=== PATIENT | female | born 1980 | race Caucasian/White ===

== ENCOUNTER 2017-05-05 11:50 | Outpatient (CLI) | payer OTHER | END 2017-05-05 11:51 | disposition short-term general hospital (02) | LOC: EMS 11:50 | PROVIDERS: ATTEND Surgery | DX: R10.12 Left upper quadrant pain (principal) | CPT/HCPCS: A0425; A0427 ==

== ENCOUNTER 2019-08-10 17:35 | Emergency (ER) | payer BC, OTHER ==
[2019-08-10 17:46] VITALS: BP 123/70
--- NOTE | 2019-08-10 17:56 | ED Physician Documentation ---
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 She was at her necktie maker appointment today when a heart rate was unable to be found. Came here for evaluation. No vaginal bleeding or cramping. No leakage of fluid. Nothing makes it better or worse. Patient is otherwise healthy. Patient is blood type A+ Review of Systems Constitutional: denies: Fever, Chills GI: denies: Vomiting, Diarrhea : denies: Dysuria, Frequency, Hesitancy Skin: denies: Rash Musculoskeletal: denies: Neck pain, Back pain Neurologic: denies: Headache PD PAST MEDICAL HISTORY - Past Medical History Past Medical History: No - Past Surgical History Past Surgical History: No - Allergies Allergies/Adverse Reactions: Allergies Allergy/AdvReac Type Severity Reaction Status Date / Time No Known Drug Allergies Allergy Verified 08/10/19 17:42 - Living Situation Living Situation: reports: With family Living Arrangement: reports: At home - Social History Does the pt smoke?: No Does the pt drink ETOH?: No Does the pt have substance abuse?: No - Family History Family history: reports: Non contributory PD ED PE NORMAL - Vitals Vital signs reviewed: Yes - General General: Alert and oriented X 3, No acute distress - HEENT HEENT: Moist mucous membranes - Neck Neck: Supple, no meningeal sign - Cardiac Cardiac: RRR - Respiratory Respiratory: No respiratory distress, Clear bilaterally - Abdomen Abdomen: Soft, Non tender, Non distended - Derm Derm: Warm and dry - Neuro Neuro: Alert and oriented X 3 - Psych Psych: Normal mood, Normal affect Results - Vitals Vitals: Vital Signs - 24 hr 08/10/19 17:38 Temperature 37.0 C Heart Rate 58 L Respiratory 16 Rate Blood Pressure 123/70 O2 Saturation 100 Oxygen O2 Source Room air PD MEDICAL DECISION MAKING - ED course Complexity details: reviewed results, re-evaluated patient, considered differential, d/w patient, d/w library sales consultant ED course: Bedside ultrasound reveals a intrauterine with no movement and no heartbeat visible. A formal ultrasound was ordered along with blood work. Discussed the case with Dr. Ny, OB who recommends ultrasound. Patient signed out to the oncoming emergency department physician who will follow-up with OB when the ultrasound is returned. Departure - Departure Clinical Impression: Intrauterine before 20 weeks of gestation Condition: Stable
[2019-08-10 18:18] LABS: BILIRUBIN,URINE NEGATIVE (NEGATIVE); GLUCOSE, URINE (UA) NEGATIVE (NEGATIVE); KETONES,URINE (UA) NEGATIVE (NEGATIVE); LEUKOCYTE ESTERASE, URINE NEGATIVE (NEGATIVE); NITRITE,URINE NEGATIVE (NEGATIVE); OCCULT BLOOD,URINE NEGATIVE (NEGATIVE); PROTEIN,URINE NEGATIVE (NEGATIVE); UROBILINOGEN,URINE 0.2 (NORMAL) E.U./dL (NORMAL)
[2019-08-10 18:19] LABS: CLARITY,URINE CLEAR (CLEAR)
[2019-08-10 18:34] LABS: BASOPHILS % (AUTO) 0.4 %; EOSINOPHILS # (AUTO) 0.1 10^3/uL (0.0-0.7); EOSINOPHILS % (AUTO) 1.4 %; HGB - HEMOGLOBIN 12.5 g/dL (12.0-16.0); LYMPHOCYTES # (AUTO) 2.2 10^3/uL (1.5-3.5); LYMPHOCYTES % (AUTO) 31.3 %; MEAN CORPUSCULAR HEMOGLOBIN 31.6 pg (27.0-31.0); MEAN CORPUSCULAR HGB CONC 34.1 g/dL (32.0-36.0); MEAN CORPUSCULAR VOLUME 92.7 fL (81.0-99.0); MEAN PLATELET VOLUME 10.6 fL (7.9-10.8); MONOCYTES # (AUTO) 0.6 10^3/uL (0.0-1.0); MONOCYTES % (AUTO) 7.9 %; NEUTROPHILS # (AUTO) 4.1 10^3/uL (1.5-6.6); NEUTROPHILS % (AUTO) 58.4 %; PLT - PLATELET COUNT 215 10^3/uL (130-450); RED BLOOD COUNT 3.96 10^6/uL (4.20-5.40); RED CELL DISTRIBUTION WIDTH 12.9 % (12.0-15.0); WHITE BLOOD COUNT 7.1 x10^3/uL (4.8-10.8)
[2019-08-10 18:42] LABS: ALBUMIN 3.6 g/dL (3.2-5.5); ALBUMIN/GLOBULIN RATIO 1.1 (1.0-2.2); BILIRUBIN,TOTAL 0.5 mg/dL (0.2-1.0); CALCIUM 8.7 mg/dL (8.5-10.3); CREATININE 0.6 mg/dL (0.4-1.0); TOTAL PROTEIN 6.8 g/dL (6.7-8.2)
--- NOTE | 2019-08-10 19:34 | Ultrasound Report ---
Reason: 16 weeks preg, no FHR found Procedure Date: 08/10/2019 Accession Number: [id number] / [id number] Procedure: US - OB First Trimester CPT Code: Final Report FULL RESULT: EXAM: LIMITED OBSTETRICAL ULTRASOUND EARLY SECOND TRIMESTER EXAM DATE: 08/10/2019 07:12 PM. CLINICAL HISTORY: 16 weeks , no heart rate found. Clinical dates: LMP 04/17/2019, EGA 16 weeks 2 days, TRAY 01/22/2020. COMPARISON: None. TECHNIQUE: Real-time sonographic evaluation of the fetus performed by the editor trade journal. Multiple sales representative education courses static images were saved for review. GENERAL EVALUATION Odom . Cardiac activity: None. No heart rate detected. movement: None. Presentation: Breech. Placenta: Anterior position. No evidence for previa. Amniotic fluid: MVP 2.4 cm. PHU of 7.1 cm. BIOMETRY Bi-Parietal Diameter (BPD): 2.6 cm, 14 weeks 3 days Head Circumference (HC): 10 cm, 14 weeks 4 days Abdominal Circumference (AC): 9 cm, 15 weeks 2 days Femur Length (FL): 1.5 cm, 14 weeks 3 days EGA based on current ultrasound is 14 weeks 5 days, TRAY 02/03/2020. Estimated Weight: 107 g. MATERNAL STRUCTURES Uterus: Unremarkable. Cervix: Long and closed. 3 cm. Right ovary/adnexa: Unremarkable. Right ovary appears within normal limits. Left ovary/adnexa: Unremarkable. Left ovary appears within normal limits. Free fluid: None. IMPRESSION: 1. demise. No cardiac activity is seen. Fetus measures 14 weeks 5 days EGA. See above. RADIA
--- NOTE | 2019-08-10 20:06 | ED Physician Documentation ---
ED Addendum - Addendum Addendum: 08/10/19 20:05 Patient signed out to me by Dr. Nelson, briefly this is a 39-year-old woman at about 16 weeks by dates who was brought in from dry cleaning counter clerk clinic without being able to identify heart tones. Ultrasound was pending at the time of signout which unfortunately confirms a intrauterine demise with a 14-week and 5-day size. Case discussed by phone with on-call OB, Dr. Ny who would be happy to see the patient on Tuesday to help arrange for referral to a larger center that does D and E on this size noting that this hospital does not have the equipment for the procedure after about a 13-week size. I had a long discussion with the patient, her dry cleaning counter clerk and friend were also there. We discussed options including potential transfer tonight noting the psychiatric impact of the diagnosis. She is understanding but it is not a good time for her to have a surgical procedure as her is out of town and will return in a few days and will talk with Dr. Ny on Tuesday. 08/10/19 20:08 Discharged home in stable condition, diagnosis intrauterine demise.
== END 2019-08-10 20:18 | disposition home or self-care (01) ==
LOC: ED 17:35
DX: O36.4XX0 Maternal care for intrauterine death, not applicable or unspecified (principal); Z3A.16 16 weeks gestation of pregnancy
CPT/HCPCS: 36415; 76801; 80053; 81001; 81003; 83690; 84702; 85025; 87086; 99284

== ENCOUNTER 2019-08-15 16:08 | Observation (INO) | payer BC ==
[2019-08-15] MEDS ORDERED: SODIUM CHLORIDE FLUSH 0.9% 10 ML SYRINGE IVP PRN (16:41)
--- NOTE | 2019-08-15 16:41 | HISTORY & PHYSICAL EXAMINATION ---
Chief Complaint - Chief Complaint Chief Complaint: demise at 14 wga History of Present Illness - Admitted From Admitted From:: home - History Obtained From History obtained from: patient/[employer] - History of Present Illness HPI Comment/Other: Patient is a 39 yo with intrauterine demise at 14w5d by 08/10/19 us here for IOL Patient presented to the ED on 08/10/19 after failing to hear a heartbeat at her care visit at [facility]. She udnerwent a formal us which confirmed demise. She has since explored options for management, including seeking D&E at an outside facility. She has a homemade casket in which she wanted to place the remains and have a home burial. After extensive discussion regarding the feasibility to this plan in [facility] setting of D&E vs induction, she and her partner are opting for induction. We have discussed plan with administration as well as the pillow filler's office. She has been cleared to take the remains with her after delivery after signing a waiver/release. She is otherwise healthy and has had 3 unmedicated vaginal deliveries at home. ED records indicate blood type in A positive but lab result shave not been made available to us at this time. No cramping or vaginal bleeding. No changes in bowel/bladder habits. No N/V/fevers. PMH: none PSH: ACL repair in teens OBHX: , SVDx3, unmedicated home births. 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 No tobacco History - Past Medical History Respiratory: reports: None Neuro: reports: None Endocrine/Autoimmune: reports: None Meds/Allgy - Allergies Allergies/Adverse Reactions: Allergies Allergy/AdvReac Type Severity Reaction Status Date / Time No Known Drug Allergies Allergy Verified 08/10/19 17:42 Review of Systems - Other Findings Other Findings: As per HPI, otherwise remaining systems negative Exam - Physical Exam General Appearance: positive: No acute distress Respiratory: positive: No respiratory distress Abdomen: positive: Other (Mild tenderness to deep palpation in lower abdomen) Skin: positive: Color nml Extremities: positive: Non-tender, No pedal edema Neurologic/Psychiatric: positive: Oriented x3 Conclusion/Plan - Other Other Results/Comments: DEMISE at 14w5d EGA Reviewed options for management and will proceed with medical induction of labor Will proceed with misoprostol 400 mcg BC Q3H as per ACOG PB#135 Ativan for anxiety Patient declines pain medication at present Will contact Anesthesia should narcotics be warranted given lorazepam on board Reviewed expectations including likelihood of fever Will take remains home at discharge. This has been reviewed and cleared by CNO and legal team after review with pillow filler's office.
[2019-08-15] MEDS ORDERED: SODIUM CHLORIDE FLUSH 0.9% 10 ML SYRINGE IVP SCH (17:00)
[2019-08-15] MEDS: miSOPROStoL 200 MCG TABLET BC SCH ×3 (17:16→23:28)
[2019-08-15] MEDS: ACETAMINOPHEN 325 MG TABLET PO SCH (17:16)
[2019-08-15] MEDS: LORazepam 0.5 MG TABLET PO PRN ×2 (17:17→23:06)
[2019-08-15] MEDS ORDERED: OXYTOCIN 10 UNIT/ML VIAL ONE (21:59)
--- NOTE | 2019-08-15 22:23 | PROVIDER PROGRESS NOTE ---
Subjective - Prog Note Date Prog Note Date: 08/15/19 Prog Note Time: 22:20 - Subjective Subjective: Patient comfortable; no pain meds. Has had ativan for anxiety. Water broke and feeling some pressure in her bottom. Wants to let things move passively at this time. Minimal bleeding. Afebrile Objective - Vital Signs/Intake & Output Reviewed Vital Signs: Yes Vital Signs: Vital Signs x48h Temp Pulse Resp BP 08/15/19 19:30 98.2 F 63 18 118/73 08/15/19 17:20 97.9 F 58 L 16 107/65 - Objective General Appearance: positive: No acute distress Respiratory: positive: No respiratory distress Cardiovascular: positive: Regular rate & rhythm Skin: positive: Color nml Neurologic/Psychiatric: positive: Oriented x3 Comments/Other: Small amount of fluid loss and bloody mucus at introitus. Assessment/Plan - Problem List (1) Intrauterine before 20 weeks of gestation Impression: 39 yo with demise at approximately 14w5d ega. S/P 2 doses misoprostol Ruptured membranes Pain/anxiety well managed Continue with current care Confirmed blood type A pos with primary OB provider
[2019-08-16] MEDS: ACETAMINOPHEN 325 MG TABLET PO SCH (01:38)
[2019-08-16] MEDS ORDERED: ONDANSETRON ODT 4 MG Prepack 2 TL STA (02:16)
[2019-08-16] MEDS ORDERED: ONDANSETRON ODT 4 MG TABLET TL STA (02:22)
[2019-08-16] MEDS: miSOPROStoL 200 MCG TABLET BC SCH (02:46)
[2019-08-16] MEDS: LORazepam 0.5 MG TABLET PO PRN (02:46)
--- NOTE | 2019-08-16 03:39 | PROVIDER PROGRESS NOTE ---
Subjective - Prog Note Date Prog Note Date: 08/16/19 Prog Note Time: 03:37 - Subjective Subjective: Having some cramping and nausea. Has passed blood clots x2 Fetus delivered at 2:07 am, placenta remains intact Objective - Vital Signs/Intake & Output Vital Signs: Vital Signs x48h Temp Pulse Resp BP 08/15/19 23:00 100.0 F H 68 18 110/56 L - Objective General Appearance: positive: No acute distress, Mild distress Respiratory: positive: No respiratory distress Neurologic/Psychiatric: positive: Oriented x3 Comments/Other: SVE: placenta is sitting within the cervical canal and beginning to pass. No active blood flow Assessment/Plan - Problem List (1) Intrauterine before 20 weeks of gestation Impression: Fetus delivered at 2:07 am Retained placenta with no consistent active blood flow; intermittent passes of clots. Placenta releasing and working through the endocervix Received add'l dose of misoprostol Cont to monitor
[2019-08-16] MEDS ORDERED: CARBOPROST TROMETHAMINE 250 MCG/ML AMP IM PRN (05:28)
[2019-08-16] MEDS ORDERED: METHYLERGONOVINE 0.2 MG/ML AMP IM PRN (05:28)
[2019-08-16] MEDS ORDERED: DOCUSATE SODIUM 100 MG CAPSULE PO PRN (05:28)
[2019-08-16] MEDS ORDERED: LACTATED RINGERS 1,000 ML IV SCH (06:00)
[2019-08-16] MEDS ORDERED: IBUPROFEN 600 MG TABLET PO SCH (06:00)
[2019-08-16 06:43] LABS: BASOPHILS # (AUTO) 0.1 10^3/uL (0.0-0.1); BASOPHILS % (AUTO) 0.5 %; EOSINOPHILS # (AUTO) 0.2 10^3/uL (0.0-0.7); EOSINOPHILS % (AUTO) 1.4 %; HGB - HEMOGLOBIN 12.7 g/dL (12.0-16.0); LYMPHOCYTES # (AUTO) 2.5 10^3/uL (1.5-3.5); LYMPHOCYTES % (AUTO) 24.4 %; MEAN CORPUSCULAR HEMOGLOBIN 31.8 pg (27.0-31.0); MEAN CORPUSCULAR HGB CONC 34.8 g/dL (32.0-36.0); MEAN CORPUSCULAR VOLUME 91.5 fL (81.0-99.0); MEAN PLATELET VOLUME 10.9 fL (7.9-10.8); MONOCYTES # (AUTO) 0.7 10^3/uL (0.0-1.0); MONOCYTES % (AUTO) 7.1 %; NEUTROPHILS # (AUTO) 6.9 10^3/uL (1.5-6.6); PLT - PLATELET COUNT 224 10^3/uL (130-450); RED BLOOD COUNT 3.99 10^6/uL (4.20-5.40); RED CELL DISTRIBUTION WIDTH 12.8 % (12.0-15.0); WHITE BLOOD COUNT 10.4 x10^3/uL (4.8-10.8)
[2019-08-16] MEDS ORDERED: ACETAMINOPHEN 500 MG TABLET PO SCH (08:00)
[2019-08-16] MEDS ORDERED: OXYTOCIN/SODIUM CHLORIDE 500 ML IV PRN (09:23)
[2019-08-16 09:51] LABS: BASOPHILS # (AUTO) 0.1 10^3/uL (0.0-0.1); BASOPHILS % (AUTO) 0.5 %; EOSINOPHILS # (AUTO) 0.2 10^3/uL (0.0-0.7); EOSINOPHILS % (AUTO) 1.6 %; HGB - HEMOGLOBIN 12.2 g/dL (12.0-16.0); LYMPHOCYTES # (AUTO) 1.8 10^3/uL (1.5-3.5); LYMPHOCYTES % (AUTO) 18.4 %; MEAN CORPUSCULAR HEMOGLOBIN 32.4 pg (27.0-31.0); MEAN CORPUSCULAR HGB CONC 34.9 g/dL (32.0-36.0); MEAN CORPUSCULAR VOLUME 92.8 fL (81.0-99.0); MEAN PLATELET VOLUME 10.4 fL (7.9-10.8); MONOCYTES # (AUTO) 0.6 10^3/uL (0.0-1.0); MONOCYTES % (AUTO) 6.2 %; NEUTROPHILS # (AUTO) 7.2 10^3/uL (1.5-6.6); NEUTROPHILS % (AUTO) 72.4 %; PLT - PLATELET COUNT 208 10^3/uL (130-450); RED BLOOD COUNT 3.77 10^6/uL (4.20-5.40); RED CELL DISTRIBUTION WIDTH 12.8 % (12.0-15.0); WHITE BLOOD COUNT 9.9 x10^3/uL (4.8-10.8)
[2019-08-16 15:20] VITALS: BP 99/56
--- NOTE | 2019-08-17 09:20 | DELIVERY NOTE ---
Delivery Note - Labor Labor: positive: Other - Delivery Method Delivery Method: positive: Spontaneous vaginal delivery - Cervical Ripening Method Cervical Ripening Method: positive: Misoprostil - Presentation Presentation: positive: Vertex - Nuchal Cord Nuchal Cord: positive: None - Laceration Laceration: positive: None - Delivery Outcome Delivery Outcome: positive: Miscarriage, Stillbirth - [place] sex: positive: Female - Placenta Placenta: positive: Other (Delayed delivery as is common with demise Removed form partial delivery with ring forceps. No manual exploration) - Estimated Blood Loss Estimated Blood Loss (in cc): 750 (Blood loss as measured in chucks over several hours; controlled with pitocin. Minimal change in HCT) - Delivery Comments (Free Text/Narrative) Delivery Comments (Free Text/Narrative): Patient is a 39 yo with known demise at 14w4d by US. Counseled ex tensively regarding management options and opted for induction of labor. Received 3 doses of misoprostol 400 mcg BC. Rupture of membranes at approximately 21:30 pm on 08/15/19. Passive delivery of fetus at 2:07 am. remains examined and found to be intact. Morphological normal for gestational age. Cord was clamped and cut. Placenta remained intact. Patient received additional dose of 400 mcg BC. Blood clot delivered with passage. Minimal blood loss following delivery without active flow Intermittent passed large clots on 2 examination post delivery with no intervening blood flow. Patient was offered intervention and desired proceeding with passive delivery. At 5:30 am, placenta had passed partway through the cervical os without further blood clots. Cumulative blood loss was 400 cc without evidence of further progress in passive delivery. Patient agreed to manual removal. Sterile speculum was placed. A series of ring forceps were used to gentle extract the placenta with gentle downward traction. It was removed in pieces, but all fragments were removed form the main body of the placenta after passage through the cervical os; no breakage of the placental tissue occurred outside of direct visualization. Placenta sent to pathology. remains released to patient after clearance from yarn rewinder's office. Perineum was inspected and was intact. IV pitocin was given. Chucks pads were weighed and total EBL was estimated to be 750 cc over the course of the entire delivery.
--- NOTE | 2019-08-17 09:36 | PROVIDER PROGRESS NOTE ---
Subjective - Prog Note Date Prog Note Date: 08/16/19 Prog Note Time: 17:00 - Subjective Pt reports feeling: Improved Subjective: Serial HCT showed minimal change was 36.5 to 35. Pain well managed with ibuprofen. Lochia minimal. Patient up and ambulating and voiding. Desires discharge to home. Objective - Vital Signs/Intake & Output Intake & Output: Intake & Output 08/14/19 08/15/19 08/16/19 08/17/19 23:59 23:59 23:59 23:59 Intake Total 2000 Output Total 1640 Balance 360 - Objective General Appearance: positive: No acute distress Neck: positive: Nml inspection Respiratory: positive: No respiratory distress Cardiovascular: positive: Regular rate & rhythm Abdomen: positive: Non-tender, No distention Skin: positive: Color nml Extremities: positive: Non-tender, No pedal edema Neurologic/Psychiatric: positive: Oriented x3 - Lab Results Fish Bones: 08/16/19 09:37 Other Labs: Lab Results x24hrs 08/16/19 Range/Units 09:37 WBC 9.9 (4.8-10.8) x10^3/uL RBC 3.77 L (4.20-5.40) 10^6/uL Hgb 12.2 (12.0-16.0) g/dL Hct 35.0 L (37.0-47.0) % MCV 92.8 (81.0-99.0) fL MCH 32.4 H (27.0-31.0) pg MCHC 34.9 (32.0-36.0) g/dL RDW 12.8 (12.0-15.0) % Plt Count 208 (130-450) 10^3/uL MPV 10.4 (7.9-10.8) fL Neut # (Auto) 7.2 H (1.5-6.6) 10^3/uL Lymph # (Auto) 1.8 (1.5-3.5) 10^3/uL [place] # (Auto) 0.6 (0.0-1.0) 10^3/uL Eos # (Auto) 0.2 (0.0-0.7) 10^3/uL Baso # (Auto) 0.1 (0.0-0.1) 10^3/uL Absolute Nucleated RBC 0.00 x10^3/uL Nucleated RBC % 0.0 /100WBC Assessment/Plan - Problem List (1) Intrauterine before 20 weeks of gestation Impression: Delivery of demise Greater than expected blood loss Hemodynamically stable with stable HCT Discharge instructions given Patient declined discharge medications DC to home with fu in one week
== END 2019-08-16 15:00 | disposition home or self-care (01) ==
LOC: WFO 16:08 → FBP 16:09 → WFO 20:10 → FBP 20:11
PROVIDERS: ADMIT Obstetrics & Gynecology; ATTEND Obstetrics & Gynecology
DX: O02.1 Missed abortion (principal); F41.9 Anxiety disorder, unspecified; O04.6 Delayed or excessive hemorrhage following (induced) termination of pregnancy
CPT/HCPCS: 36415; 59414; 85025; A9270; G0378; J7120; Q0162; 86850; 86900; 86901

== ENCOUNTER 2019-08-20 15:21 | Emergency (ER) | payer BC ==
[2019-08-20 16:01] LABS: BASOPHILS # (AUTO) 0.1 10^3/uL (0.0-0.1); BASOPHILS % (AUTO) 0.8 %; EOSINOPHILS # (AUTO) 0.1 10^3/uL (0.0-0.7); EOSINOPHILS % (AUTO) 1.5 %; HGB - HEMOGLOBIN 11.8 g/dL (12.0-16.0); LYMPHOCYTES # (AUTO) 1.7 10^3/uL (1.5-3.5); LYMPHOCYTES % (AUTO) 19.6 %; MEAN CORPUSCULAR HGB CONC 33.2 g/dL (32.0-36.0); MEAN CORPUSCULAR VOLUME 93.2 fL (81.0-99.0); MEAN PLATELET VOLUME 10.3 fL (7.9-10.8); MONOCYTES # (AUTO) 0.5 10^3/uL (0.0-1.0); MONOCYTES % (AUTO) 5.8 %; NEUTROPHILS # (AUTO) 6.3 10^3/uL (1.5-6.6); NEUTROPHILS % (AUTO) 71.5 %; PLT - PLATELET COUNT 225 10^3/uL (130-450); RED BLOOD COUNT 3.81 10^6/uL (4.20-5.40); RED CELL DISTRIBUTION WIDTH 12.9 % (12.0-15.0); WHITE BLOOD COUNT 8.9 x10^3/uL (4.8-10.8)
[2019-08-20 16:08] LABS: ALBUMIN 3.7 g/dL (3.2-5.5); ALBUMIN/GLOBULIN RATIO 1.2 (1.0-2.2); BILIRUBIN,TOTAL 0.4 mg/dL (0.2-1.0); CALCIUM 8.6 mg/dL (8.5-10.3); CREATININE 0.5 mg/dL (0.4-1.0); TOTAL PROTEIN 6.8 g/dL (6.7-8.2)
--- NOTE | 2019-08-20 17:20 | Ultrasound Report ---
Reason: pelvic pain s/p miscarriage Procedure Date: 08/20/2019 Accession Number: [id number] / [id number] Procedure: US - Pelvic w/Transvag+Doppler Comp CPT Code: Final Report FULL RESULT: EXAM: PELVIC ULTRASOUND WITH DOPPLERS CLINICAL HISTORY: Pelvic pain status post miscarriage. COMPARISON: OB FIRST TRIMESTER 08/10/2019 6:25 PM TECHNIQUE: Realtime transabdominal imaging of the pelvis with static image documentation. Color flow imaging and Doppler spectral analysis was performed to evaluate blood flow to the ovaries per order. Patient refused transvaginal imaging Per watch parts inspector notes. FINDINGS: Uterus: Anteverted position. 10.9 x 5.8 x 6.9 cm, volume 230 cc. Mildly heterogeneous myometrium with at least 2 discrete myomata: 1. Anterior mid uterine body, subserosal, 1.4 x 1.0 x 1.1 cm. 2. Posterior upper uterine body, subserosal, 1.5 x 0.5 x 1.1 cm. Endometrium: 17 mm. Trace fluid in the endometrial canal. No abnormal vascularity. Cervix: Unremarkable. Right Ovary: Seen only in a single plane with measurements 2.8 x 2.2 cm. Normal echotexture. Arterial and venous blood flow are present. PSV 15 cm/sec. RI 0.6. Left Ovary: 2.3 x 1.4 x 2.2 cm, volume 3.5 cc. Normal echotexture. Arterial and venous blood flow are present. PSV 16 cm/sec. RI 0.7. Free Fluid: None. Other: None. IMPRESSION: 1. Trace fluid in the endometrial canal. No abnormal vascular material seen to suggest retained products of conception. 2. Small subserosal uterine myomata, as detailed above. 3. Arterial and venous blood flow are present to the ovaries bilaterally. RADIA
--- NOTE | 2019-08-20 18:30 | ED Physician Documentation ---
History of Present Illness - Stated complaint Stated Complaint: ABD PX - Chief complaint Chief Complaint: Abd Pain - History obtained from History obtained from: Patient, Family - History of Present Illness Timing: Today Pain level max: 8 Pain level now: 8 - Additonal information Additional information: 39-year-old female with a recent miscarriage, approximately 14 weeks along. Today she was at home when she developed sudden onset lower abdominal pain that "dropped her to the floor". She has had some vaginal bleeding, but not much. No fevers. Worse with movement and better with rest. Has not taken anything for pain. Review of Systems Constitutional: denies: Fever, Chills Throat: denies: Sore throat Respiratory: denies: Cough : denies: Dysuria, Frequency, Hesitancy Skin: denies: Rash Musculoskeletal: denies: Neck pain, Back pain Neurologic: denies: Headache PD PAST MEDICAL HISTORY - Past Medical History Respiratory: None Neuro: None Endocrine/Autoimmune: None - Past Surgical History Past Surgical History: No - Allergies Allergies/Adverse Reactions: Allergies Allergy/AdvReac Type Severity Reaction Status Date / Time No Known Drug Allergies Allergy Verified 08/10/19 17:42 - Social History Does the pt smoke?: No Smoking Status: Never smoker Does the pt drink ETOH?: No Does the pt have substance abuse?: No PD ED PE NORMAL - Vitals Vital signs reviewed: Yes - General General: Alert and oriented X 3, No acute distress, Well developed/nourished - HEENT HEENT: Moist mucous membranes - Neck Neck: Supple, no meningeal sign - Cardiac Cardiac: RRR - Respiratory Respiratory: No respiratory distress, Clear bilaterally - Abdomen Abdomen: Soft, Non distended, Other (Mild diffuse tenderness across the lower abdomen. Worse in the midline. No peritoneal signs) - Female Female : Deferred (Deferred to OB) - Back Back: No spinal TTP - Derm Derm: Warm and dry - Extremities Extremities: No edema - Neuro Neuro: Alert and oriented X 3 - Psych Psych: Normal mood, Normal affect Results - Vitals Vitals: Vital Signs - 24 hr 08/20/19 08/20/19 08/20/19 15:32 18:11 20:27 Temperature 36.8 C 37 C Heart Rate 76 61 77 Respiratory 18 16 16 Rate Blood Pressure 101/68 108/61 113/66 O2 Saturation 99 99 99 Oxygen O2 Source Room air - Labs Labs: Laboratory Tests 08/20/19 08/20/19 08/20/19 15:54 15:54 15:54 WBC 8.9 RBC 3.81 L Hgb 11.8 L Hct 35.5 L MCV 93.2 MCH 31.0 MCHC 33.2 RDW 12.9 Plt Count 225 MPV 10.3 Neut # (Auto) 6.3 Lymph # (Auto) 1.7 [place] # (Auto) 0.5 Eos # (Auto) 0.1 Baso # (Auto) 0.1 Absolute Nucleated RBC 0.00 Nucleated RBC % 0.0 Sodium 138 Potassium 3.4 L Chloride 106 Carbon Dioxide 24 Anion Gap 8.0 BUN 13 Creatinine 0.5 Estimated GFR (MDRD) 139 Glucose 114 H Calcium 8.6 Total Bilirubin 0.4 AST 27 ALT 25 Alkaline Phosphatase 47 Total Protein 6.8 Albumin 3.7 Globulin 3.1 Albumin/Globulin Ratio 1.2 Lipase 40 HCG, Quant 64.21 - Rads (name of study) Pelvic ultrasound Radiology: Prelim report reviewed, EMP read contemporaneously, See rad report (1. Trace fluid in the endometrial canal. No abnormal vascular material seen to suggest retained products of conception. 2. Small subserosal uterine myomata, as detailed above. 3. Arterial and venous blood flow are present to the ovaries bilaterally. ) PD MEDICAL DECISION MAKING - ED course Complexity details: reviewed old records, reviewed results, re-evaluated patient, considered differential, d/w patient, d/w [employer] consultant ED course: Patient with pelvic pain today. consulted OB, Dr. Beasley, who came and eval uated the patient. No evidence of endometritis, retained products. Unclear etiology of her symptoms. We will have her follow-up closely with OB as an outpatient. Patient declines any pain medication here or for home. Patient and family counseled regarding signs and symptoms for which I believe and urgent re- evaluation would be necessary. Patient with good understanding of and agreement to plan and is comfortable going home at this time This document was made in part using voice recognition software. While efforts are made to proofread this document, sound alike and grammatical errors may occur. No evidence of appendicitis, bowel obstruction, perforation or free air. Departure - Departure Disposition: 01 Home, Self Care Clinical Impression: Pelvic pain Condition: Good Instructions: ED Pelvic Pain [facility] Follow-Up: Patricia Reynolds ARNP, STATE FARM AGENT TEAM MEMBER-C [Primary Care Provider] - Within 1 week Comments: Return if you worsen. The cause of your symptoms is unclear today. Use motrin or tylenol as needed for pain. Discharge Date/Time: 08/20/19 20:27
[2019-08-20 20:27] VITALS: BP 113/66
== END 2019-08-20 20:27 | disposition home or self-care (01) ==
LOC: ED 15:21
DX: R10.2 Pelvic and perineal pain (principal); D25.2 Subserosal leiomyoma of uterus
CPT/HCPCS: 36415; 76830; 76856; 80053; 83690; 84702; 85025; 93975; 99284

== ENCOUNTER 2022-07-09 14:15 | Outpatient (CLI) | payer BC | END 2022-07-09 23:59 | disposition EMS.NT | LOC: EMS 14:15 | DX: R10.9 Unspecified abdominal pain (principal) ==

== ENCOUNTER 2022-07-09 14:42 | Emergency (ER) | payer BC ==
[2022-07-09 15:16] LABS: BASOPHILS # (AUTO) 0.1 10^3/uL (0.0-0.1); BASOPHILS % (AUTO) 0.8 %; EOSINOPHILS # (AUTO) 0.1 10^3/uL (0.0-0.7); EOSINOPHILS % (AUTO) 1.5 %; HCT - HEMATOCRIT 37.2 % (37.0-47.0); HGB - HEMOGLOBIN 12.6 g/dL (12.0-16.0); LYMPHOCYTES # (AUTO) 2.3 10^3/uL (1.5-3.5); LYMPHOCYTES % (AUTO) 30.9 %; MEAN CORPUSCULAR HEMOGLOBIN 30.8 pg (27.0-31.0); MEAN CORPUSCULAR HGB CONC 33.9 g/dL (32.0-36.0); MEAN PLATELET VOLUME 10.2 fL (7.9-10.8); MONOCYTES # (AUTO) 0.6 10^3/uL (0.0-1.0); MONOCYTES % (AUTO) 7.4 %; NEUTROPHILS # (AUTO) 4.4 10^3/uL (1.5-6.6); PLT - PLATELET COUNT 247 10^3/uL (130-450); RED BLOOD COUNT 4.09 10^6/uL (4.20-5.40); RED CELL DISTRIBUTION WIDTH 12.6 % (12.0-15.0); WHITE BLOOD COUNT 7.4 x10^3/uL (4.8-10.8)
[2022-07-09 15:31] LABS: ALBUMIN 3.9 g/dL (3.2-5.5); ALBUMIN/GLOBULIN RATIO 1.2 (1.0-2.2); BILIRUBIN,TOTAL 0.4 mg/dL (0.2-1.0); CALCIUM 8.8 mg/dL (8.5-10.3); CREATININE 0.7 mg/dL (0.4-1.0); POTASSIUM 3.8 mmol/L (3.5-5.0); TOTAL PROTEIN 7.1 g/dL (6.7-8.2)
[2022-07-09 16:04] LABS: BILIRUBIN,URINE NEGATIVE (NEGATIVE); GLUCOSE, URINE (UA) NEGATIVE (NEGATIVE); KETONES,URINE (UA) NEGATIVE (NEGATIVE); LEUKOCYTE ESTERASE, URINE SMALL (NEGATIVE); NITRITE,URINE NEGATIVE (NEGATIVE); OCCULT BLOOD,URINE SMALL (NEGATIVE); PROTEIN,URINE NEGATIVE (NEGATIVE); UROBILINOGEN,URINE 0.2 (NORMAL) E.U./dL (NORMAL)
[2022-07-09 16:07] LABS: CLARITY,URINE HAZY (CLEAR); HCG UR QUAL NEGATIVE
[2022-07-09 16:22] LABS: BACTERIA,URINE Moderate /HPF (None Seen); MUCUS,URINE Moderate Strands; SQUAMOUS EPITHELIAL CELL,UR MOD Squamous (<= Few)
[2022-07-09] MEDS ORDERED: SODIUM CHLORIDE 0.9% 1,000 ML IV STA (16:52)
[2022-07-09] MEDS ORDERED: HYDROmorphone 1 MG/ML CARPUJECT IVP STA (16:52)
[2022-07-09] MEDS ORDERED: ONDANSETRON 4 MG/2 ML VIAL IVP STA (16:52)
[2022-07-09] MEDS ORDERED: iohexoL-300 100 ML VIAL ONE (17:02)
--- NOTE | 2022-07-09 17:45 | ED Physician Documentation ---
History of Present Illness - Stated complaint Stated Complaint: ABDOMINAL PX/SOA - Chief complaint Chief Complaint: Abd Pain - Additonal information Additional information: Patient 42-year-old female presenting to the emergency department with left lower quadrant abdominal pain. Reports has been having gastrointestinal symptoms including diarrhea, bloating and abdominal distention for the last several days. Was feeling somewhat better however today had little stabbing left lower quadrant abdominal pain. Reported was severe enough that she had to lay down. There was associated nausea without vomiting. She denies previous abdominal surgeries.Does report a history of gallstones identified as an incidental finding during a previous . Denies any right upper quadrant pain. No independent historians, limitations to history. Review of Systems Constitutional: denies: Fever Eyes: denies: Loss of vision Ears: denies: Loss of hearing Nose: denies: Rhinorrhea / runny nose Throat: denies: Dental pain / toothache Cardiac: denies: Chest pain / pressure GI: reports: Abdominal Pain, Nausea, Diarrhea : denies: Dysuria Skin: denies: Rash PD PAST MEDICAL HISTORY - Past Medical History Respiratory: None Neuro: None Endocrine/Autoimmune: None GI: Cholelithiasis - Past Surgical History Past Surgical History: No - Present Medications Home Medications: Ambulatory Orders Medication Instructions Recorded Confirmed HYDROcod/ACETAM 5/325 [[place] 5/325] 1 - 2 ea PO Q6H PRN #14 tablet 07/09/22 Ondansetron Odt [Zofran] 4 mg TL Q6H PRN #10 tablet 07/09/22 - Allergies Allergies/Adverse Reactions: Allergies Allergy/AdvReac Type Severity Reaction Status Date / Time No Known Drug Allergies Allergy Verified 07/09/22 14:51 - Social History Does the pt smoke?: No Smoking Status: Never smoker Does the pt drink ETOH?: No Does the pt have substance abuse?: No PD ED PE NORMAL - General General: Alert and oriented X 3, No acute distress, Well developed/nourished, Other - HEENT HEENT: Atraumatic, PERRL, EOMI, Ears normal, Moist mucous membranes, Pharynx benign - Neck Neck: Supple, no meningeal sign, No bony TTP, No adenopathy, Thyroid normal, No JVD, No bruit, C-Spine cleared by NEXUS criteria - Cardiac Cardiac: RRR, No murmur, No gallop, Strong equal pulses - Respiratory Respiratory: No respiratory distress, Clear bilaterally - Abdomen Abdomen: Normal bowel sounds, Non tender - Female Female : Deferred - Rectal Rectal: Deferred - Back Back: No CVA TTP - Derm Derm: Normal color - Extremities Extremities: No deformity - Neuro Neuro: Alert and oriented X 3, 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, No motor deficit, Normal speech Results - Vitals Vitals: Oxygen O2 Source Room air - Labs Labs: Laboratory Tests 07/09/22 07/09/22 07/09/22 15:03 15:12 15:12 WBC 7.4 RBC 4.09 L Hgb 12.6 Hct 37.2 MCV 91.0 MCH 30.8 MCHC 33.9 RDW 12.6 Plt Count 247 MPV 10.2 Neut # (Auto) 4.4 Lymph # (Auto) 2.3 Coleman # (Auto) 0.6 Eos # (Auto) 0.1 Baso # (Auto) 0.1 Absolute Nucleated RBC 0.00 Nucleated RBC % 0.0 Sodium 140 Potassium 3.8 Chloride 106 Carbon Dioxide 26 Anion Gap 8.0 BUN 16 Creatinine 0.7 Estimated GFR (MDRD) 93 Glucose 112 H Calcium 8.8 Total Bilirubin 0.4 AST 98 H ALT 56 Alkaline Phosphatase 61 Total Protein 7.1 Albumin 3.9 Globulin 3.2 Albumin/Globulin Ratio 1.2 Lipase 61 H Urine Color YELLOW Urine Clarity HAZY Urine pH 6.0 Ur Specific [place] 1.025 Urine Protein NEGATIVE Urine Glucose (UA) NEGATIVE Urine Ketones NEGATIVE Urine Occult Blood SMALL H Urine Nitrite NEGATIVE Urine Bilirubin NEGATIVE Urine Urobilinogen 0.2 (NORMAL) Ur Leukocyte Esterase SMALL H Urine RBC 6-10 H Urine WBC 6-10 H Ur Squamous Epith Cells MOD Squamous H Urine Bacteria Moderate H Urine Mucus Moderate Strands Ur Microscopic Review INDICATED Urine Culture Comments NOT INDICATED Urine HCG, Qual NEGATIVE PD Medical Decision Making - ED course Complexity details: reviewed results, re-evaluated patient, d/w patient Reviewed Lab Results: All labs independently interpreted. No leukocytosis, Significant elevation in lipase, LFTs, alkaline phosphatase or bilirubin. Social Determinants of Health: None Drug Therapy Requiring Monitoring for Toxicity: IV narcotic pain medication. Procedural Risk Factors Specific to Patient: None ED course: Patient is 42-year-old female presenting to the emergency department with epigastric and left upper quadrant abdominal pain. Afebrile, hemodynamically stable on arrival to the emergency department. Abdominal exam benign. Does have history of cholelithiasis but no right upper quadrant tenderness, negative Luther sign and labs obtained did not demonstrate any elevation in LFTs, alkaline phosphatase or bilirubin that would be of eminent concern for biliary pathology. Lipase is not significantly elevated. CT of the abdomen pelvis was both interpreted independently by myself as well as by radiology did not de monstrate any intra-abdominal abnormality. Patient given medication for pain control and monitored in the emergency department for several hours. No repeat episodes of pain over that time. Will discharge at this time for follow-up with primary care. Given medication for pain control as well as nausea control at home. Clear return precautions given. Departure - Departure Disposition: Home, Self Care Clinical Impression: Abdominal pain, Pulmonary nodule Instructions: ED Abdominal Pain Female Non-Specific Abdominal Pain Prescriptions: HYDROcod/ACETAM 5/325 [[place] 5/325] 1 - 2 ea PO Q6H PRN #14 tablet PRN Reason: Pain Ondansetron Odt [Zofran] 4 mg TL Q6H PRN #10 tablet PRN Reason: Nausea / Vomiting Comments: Thank you for allowing us to care for you today at [facility]. Today in the emergency department you were evaluated for any possible life- threatening medical emergency. All the testing performed in the emergency department today including your blood work, urine analysis and the CT scan of her abdomen and pelvis were all very reassuring. As an incidental finding you were noted to have a small pulmonary nodule. This is likely benign and you are very low risk for any complications from this how ever this is something that should discuss with your primary care doctor as they may wish to monitor it in the future. Please do make a follow-up appoint with your primary care doctor soon as bessy Murillo will be sending some medication for pain and nausea to your preferred pharmacy, please use this as directed. If it anytime you develop any new or worsening symptoms please not hesitate to return to the emergency department. Discharge Date/Time: 07/09/22 18:53
--- NOTE | 2022-07-09 17:57 | CT Report ---
PROCEDURE: ABDOMEN/PELVIS W INDICATIONS: abd pain CONTRAST: 100ml omni 300 TECHNIQUE: After the administration of intravenous contrast, 5 mm thick sections acquired from the diaphragms to the symphysis. 5 mm thick coronal and sagittal reformats were acquired. For radiation dose reducti on, the following was used: automated exposure control, adjustment of mA and/or kV according to darnell ent size. COMPARISON: None. FINDINGS: Image quality: Excellent. ABDOMEN: Lung bases: A 3 mm nodule is seen in the included left upper lobe (image 5 of series 4). Heart size i s normal. Solid organs: Liver and spleen are normal in size and enhancement. Gallbladder contains gallstones without signs of acute cholecystitis. Biliary system is non dilated. Pancreas enhances normally. N o adrenal nodules. Kidneys demonstrate normal size and enhancement, without hydronephrosis. Peritoneum and bowel: Moderate stool seen throughout the colon. Bowel loops demonstrate normal wall thickness and caliber. No free fluid or air. Nodes and vessels: No retroperitoneal or mesenteric adenopathy by size criteria. Aorta and inferior vena cava are normal in size. Miscellaneous: Small fat-containing periumbilical hernia. PELVIS: Genitourinary: Bladder wall thickness is normal. A left ovarian corpus luteal cyst is seen. The ova channing are symmetric in size. The uterus is unremarkable. Miscellaneous: No inguinal hernias or adenopathy. Bones: No suspicious bony lesions. No vertebral body compression fractures. IMPRESSION: 1.No definite acute abnormality identified in the abdomen or pelvis. 2.Cholelithiasis without signs of acute cholecystitis. 3.Moderate colonic stool. 4.Enhancing left ovarian corpus luteal cyst. 5.Incidental 3 mm left upper lobe pulmonary nodule, which is considered benign. If the patient is at a high risk for pulmonary malignancy, nonurgent CT of the chest could be performed to evaluate for ad ditional nodules. Reviewed by: Arben Bazzi MD on 07/09/2022 5:56 PM PST Approved by: Arben Bazzi MD on 07/09/2022 5:56 PM PST Station ID: [id number]
[2022-07-09] MEDS ORDERED: iohexoL-300 100 ML VIAL IVP ONE (18:28)
[2022-07-09 18:45] VITALS: BP 118/73
== END 2022-07-09 18:53 | disposition home or self-care (01) ==
LOC: ED 14:42
DX: R10.32 Left lower quadrant pain (principal); R11.2 Nausea with vomiting, unspecified; R91.1 Solitary pulmonary nodule
CPT/HCPCS: 36415; 74177; 80053; 81001; 81025; 83690; 85025; 96361; 96374; 99283; 99284; J1170; Q9967; 81003; 87086

== ENCOUNTER 2023-02-25 13:47 | Outpatient (CLI) | payer BC ==
--- NOTE | 2023-02-25 14:30 | XRAY Report ---
PROCEDURE: Chest 2 View X-Ray INDICATIONS: SUBACUTE COUGH TECHNIQUE: 2 views of the chest were acquired. COMPARISON: None. FINDINGS: Surgical changes and devices: None. Lungs and pleura: No pleural effusions or pneumothorax. Lungs are clear. Mediastinum: Mediastinal contours appear normal. Heart size is normal. Bones and chest wall: No suspicious bony lesions. Overlying soft tissues appear unremarkable. IMPRESSION: No acute cardiopulmonary process. Reviewed by: Adam Griffith MD on 02/25/2023 2:28 PM PDT Approved by: Adam Griffith MD on 02/25/2023 2:28 PM PDT Station ID: [id number]
== END 2023-02-25 13:48 | disposition home or self-care (01) ==
LOC: DI 13:47
PROVIDERS: ATTEND Naturopath
DX: R05.2 Subacute cough (principal)